=== PATIENT | female | born 1950 | race Caucasian/White ===

== ENCOUNTER 2017-08-15 11:15 | Outpatient (CLI) | payer MEDICARE, OTHER, SELFPAY | END 2017-08-15 12:00 | disposition home or self-care (01) | PROVIDERS: Visit Provider Allergy & Immunology | DX: J45.40 Moderate persistent asthma, uncomplicated (principal) | CPT/HCPCS: 96372; J2357 ==

== ENCOUNTER 2017-08-28 11:46 | Outpatient (CLI) | payer MEDICARE, OTHER, SELFPAY ==
[2017-08-28 12:09] VITALS: BMI 28.9
[2017-08-28 12:44] VITALS: BP 113/76; PULSE 98; RESP 20; TEMP 36.4; O2SAT 97
== END 2017-08-28 13:05 | disposition home or self-care (01) ==
LOC: INF 11:51
PROVIDERS: PCP Family Medicine; Visit Provider Allergy & Immunology
DX: J45.40 Moderate persistent asthma, uncomplicated (principal)
CPT/HCPCS: 96372; J2357

== ENCOUNTER 2017-09-12 12:08 | Outpatient (CLI) | payer MEDICARE, OTHER, SELFPAY ==
[2017-09-12 13:50] VITALS: BP 131/87; PULSE 96; RESP 18; O2SAT 98
== END 2017-09-12 14:05 | disposition home or self-care (01) ==
LOC: INF 12:08
PROVIDERS: Family Provider Internal Medicine; PCP Family Medicine; Visit Provider Allergy & Immunology
DX: J45.40 Moderate persistent asthma, uncomplicated (principal)
CPT/HCPCS: 96372; J2357

== ENCOUNTER 2017-09-26 13:25 | Outpatient (CLI) | payer MEDICARE, OTHER, SELFPAY ==
[2017-09-26 13:50] VITALS: BP 123/73; PULSE 88; RESP 18; O2SAT 98
== END 2017-09-26 14:05 | disposition home or self-care (01) ==
LOC: INF 13:48
PROVIDERS: Family Provider Internal Medicine; PCP Family Medicine; Visit Provider Allergy & Immunology
DX: J45.40 Moderate persistent asthma, uncomplicated (principal)
CPT/HCPCS: 96372; J2357

== ENCOUNTER 2017-10-11 11:45 | Outpatient (CLI) | payer MEDICARE, OTHER, SELFPAY ==
[2017-10-11 12:25] VITALS: BP 133/72; PULSE 81; RESP 18
== END 2017-10-11 12:25 | disposition home or self-care (01) ==
LOC: INF 16:05
PROVIDERS: Family Provider Internal Medicine; Visit Provider Allergy & Immunology
DX: J45.40 Moderate persistent asthma, uncomplicated (principal)
CPT/HCPCS: 96372; J2357

== ENCOUNTER 2017-10-25 11:50 | Outpatient (CLI) | payer MEDICARE, OTHER, SELFPAY ==
[2017-10-25 12:25] VITALS: BP 123/74; PULSE 87; RESP 18; O2SAT 93
== END 2017-10-25 12:40 | disposition home or self-care (01) ==
LOC: INF 12:15
PROVIDERS: Family Provider Internal Medicine; Visit Provider Allergy & Immunology
DX: J45.40 Moderate persistent asthma, uncomplicated (principal)
CPT/HCPCS: 96372; J2357

== ENCOUNTER 2017-11-08 13:05 | Outpatient (CLI) | payer MEDICARE, OTHER, SELFPAY ==
[2017-11-08 13:40] VITALS: BP 128/61; PULSE 78; RESP 18; TEMP 36.8; O2SAT 96
== END 2017-11-08 13:55 | disposition home or self-care (01) ==
LOC: INF 13:28
PROVIDERS: Family Provider Internal Medicine; Visit Provider Allergy & Immunology
DX: J45.40 Moderate persistent asthma, uncomplicated (principal)
CPT/HCPCS: 96372; J2357

== ENCOUNTER 2017-11-22 12:45 | Outpatient (CLI) | payer MEDICARE, OTHER, SELFPAY ==
[2017-11-22 13:20] VITALS: BP 141/82; PULSE 87; RESP 18
== END 2017-11-22 13:40 | disposition home or self-care (01) ==
LOC: INF 12:47
PROVIDERS: Family Provider Internal Medicine; Visit Provider Allergy & Immunology
DX: J45.40 Moderate persistent asthma, uncomplicated (principal)
CPT/HCPCS: 96372; J2357

== ENCOUNTER 2017-12-06 12:20 | Outpatient (CLI) | payer MEDICARE, OTHER, SELFPAY ==
[2017-12-06 13:35] VITALS: BP 132/52; PULSE 95; RESP 18; O2SAT 97
== END 2017-12-06 13:55 | disposition home or self-care (01) ==
LOC: INF 12:45
PROVIDERS: Family Provider Internal Medicine; Visit Provider Allergy & Immunology
DX: J45.40 Moderate persistent asthma, uncomplicated (principal)
CPT/HCPCS: 96372; J2357

== ENCOUNTER 2017-12-20 12:42 | Outpatient (CLI) | payer MEDICARE, OTHER, SELFPAY ==
[2017-12-20 13:20] VITALS: BP 122/65; PULSE 91; RESP 18; O2SAT 98
== END 2017-12-20 13:40 | disposition home or self-care (01) ==
LOC: INF 12:42
PROVIDERS: Family Provider Internal Medicine; Visit Provider Allergy & Immunology
DX: J45.40 Moderate persistent asthma, uncomplicated (principal)
CPT/HCPCS: 96372; J2357

== ENCOUNTER 2018-01-16 11:25 | Outpatient (CLI) | payer MEDICARE, OTHER, SELFPAY ==
[2018-01-16 11:55] VITALS: BP 128/59; PULSE 87; RESP 18; TEMP 36.6; O2SAT 100
== END 2018-01-16 12:15 | disposition home or self-care (01) ==
LOC: INF 11:44
PROVIDERS: Family Provider Internal Medicine; Visit Provider Allergy & Immunology
DX: J45.40 Moderate persistent asthma, uncomplicated (principal)
CPT/HCPCS: 96372; J2357

== ENCOUNTER 2018-01-31 12:35 | Outpatient (CLI) | payer MEDICARE, OTHER, SELFPAY ==
[2018-01-31 13:00] VITALS: BP 142/82; PULSE 68; RESP 20; TEMP 36.9; O2SAT 96
[2018-01-31 13:15] VITALS: BP 142/82; PULSE 68; RESP 20; TEMP 36.9; O2SAT 96
== END 2018-01-31 13:15 | disposition home or self-care (01) ==
LOC: INF 12:35
PROVIDERS: Family Provider Internal Medicine; Visit Provider Allergy & Immunology
DX: J45.40 Moderate persistent asthma, uncomplicated (principal)
CPT/HCPCS: 96372; J2357

== ENCOUNTER 2018-02-14 13:28 | Outpatient (CLI) | payer MEDICARE, OTHER, SELFPAY ==
[2018-02-14 13:58] VITALS: BP 139/73; PULSE 86; RESP 18; TEMP 36.6; O2SAT 95
[2018-02-14 14:03] VITALS: BP 139/73; PULSE 86; RESP 18; TEMP 36.6; O2SAT 95
== END 2018-02-14 14:05 | disposition home or self-care (01) ==
LOC: INF 13:28
PROVIDERS: Family Provider Internal Medicine; Visit Provider Allergy & Immunology
DX: J45.40 Moderate persistent asthma, uncomplicated (principal)
CPT/HCPCS: 96372; J2357

== ENCOUNTER 2018-02-28 12:49 | Outpatient (CLI) | payer MEDICARE, OTHER, SELFPAY ==
[2018-02-28 13:15] VITALS: BP 129/80; PULSE 86; RESP 18; TEMP 36.3; O2SAT 97
== END 2018-02-28 13:30 | disposition home or self-care (01) ==
LOC: INF 12:49
PROVIDERS: Family Provider Internal Medicine; Visit Provider Allergy & Immunology
DX: J45.40 Moderate persistent asthma, uncomplicated (principal)
CPT/HCPCS: 96372; J2357

== ENCOUNTER 2018-03-14 14:00 | Outpatient (CLI) | payer MEDICARE, OTHER, SELFPAY ==
[2018-03-14 14:25] VITALS: BP 144/83; PULSE 81; RESP 18; O2SAT 96
== END 2018-03-14 14:28 | disposition home or self-care (01) ==
LOC: INF 14:18
PROVIDERS: Family Provider Internal Medicine; Visit Provider Allergy & Immunology
DX: J45.40 Moderate persistent asthma, uncomplicated (principal)
CPT/HCPCS: 96372; J2357

== ENCOUNTER 2018-03-28 13:29 | Outpatient (CLI) | payer MEDICARE, OTHER, SELFPAY ==
[2018-03-28 14:00] VITALS: BP 127/73; PULSE 79; RESP 18; O2SAT 93
== END 2018-03-28 14:20 | disposition home or self-care (01) ==
LOC: INF 13:29
PROVIDERS: Family Provider Internal Medicine; Visit Provider Allergy & Immunology
DX: J45.40 Moderate persistent asthma, uncomplicated (principal)
CPT/HCPCS: 96372; J2357

== ENCOUNTER 2018-04-11 13:48 | Outpatient (CLI) | payer MEDICARE, OTHER, SELFPAY ==
[2018-04-11 14:30] VITALS: BP 122/70; PULSE 66; RESP 20; TEMP 36.9; O2SAT 96
== END 2018-04-11 14:45 | disposition home or self-care (01) ==
LOC: INF 13:49
PROVIDERS: Family Provider Internal Medicine; PCP Family Medicine; Visit Provider Allergy & Immunology
DX: J45.40 Moderate persistent asthma, uncomplicated (principal)
CPT/HCPCS: 96372; J2357

== ENCOUNTER 2018-04-25 11:20 | Outpatient (CLI) | payer MEDICARE, OTHER, SELFPAY ==
[2018-04-25 11:55] VITALS: BP 115/70; PULSE 86; RESP 18; O2SAT 95
== END 2018-04-25 12:15 | disposition home or self-care (01) ==
LOC: INF 11:41
PROVIDERS: PCP Family Medicine; Visit Provider Allergy & Immunology
DX: J45.40 Moderate persistent asthma, uncomplicated (principal)
CPT/HCPCS: 96372; J2357

== ENCOUNTER 2018-05-09 13:10 | Outpatient (CLI) | payer MEDICARE, OTHER, SELFPAY ==
[2018-05-09 13:35] VITALS: BP 138/84; PULSE 88; RESP 18; TEMP 36.1; O2SAT 95
== END 2018-05-09 13:45 | disposition home or self-care (01) ==
LOC: INF 13:12
PROVIDERS: Family Provider Internal Medicine; PCP Family Medicine; Visit Provider Allergy & Immunology
DX: J45.50 Severe persistent asthma, uncomplicated (principal)
CPT/HCPCS: 96372; J2357

== ENCOUNTER 2018-05-23 12:54 | Outpatient (CLI) | payer MEDICARE, OTHER, SELFPAY ==
[2018-05-23 13:37] VITALS: BP 146/75; PULSE 80; RESP 18; TEMP 36.7; O2SAT 97
== END 2018-05-23 13:05 | disposition home or self-care (01) ==
LOC: INF 12:54
PROVIDERS: Family Provider Internal Medicine; PCP Family Medicine; Visit Provider Allergy & Immunology
DX: J45.50 Severe persistent asthma, uncomplicated (principal)
CPT/HCPCS: 96372; J2357

== ENCOUNTER 2018-06-06 11:40 | Outpatient (CLI) | payer MEDICARE, OTHER, SELFPAY ==
[2018-06-06 12:25] VITALS: BP 141/79; PULSE 85; RESP 18; O2SAT 96
== END 2018-06-06 12:40 | disposition home or self-care (01) ==
LOC: INF 11:53
PROVIDERS: Visit Provider Allergy & Immunology
DX: J45.50 Severe persistent asthma, uncomplicated (principal)
CPT/HCPCS: 96372; J2357

== ENCOUNTER 2018-07-08 11:44 | Outpatient (CLI) | payer MEDICARE, OTHER, SELFPAY ==
[2018-07-08 11:47] VITALS: BP 143/88; PULSE 78; RESP 20; TEMP 36.7; O2SAT 96
== END 2018-07-08 11:59 | disposition home or self-care (01) ==
LOC: INF 11:44
PROVIDERS: Visit Provider Allergy & Immunology
DX: J45.50 Severe persistent asthma, uncomplicated (principal)
CPT/HCPCS: 96372; J2357

== ENCOUNTER 2018-07-24 13:25 | Outpatient (CLI) | payer MEDICARE, OTHER, SELFPAY ==
[2018-07-24 13:55] VITALS: BP 113/73; PULSE 87; RESP 18; TEMP 36.8
== END 2018-07-24 14:15 | disposition home or self-care (01) ==
LOC: INF 13:40
PROVIDERS: Visit Provider Allergy & Immunology
DX: J45.50 Severe persistent asthma, uncomplicated (principal)
CPT/HCPCS: 96372; J2357

== ENCOUNTER 2018-08-08 13:25 | Outpatient (CLI) | payer MEDICARE, OTHER, SELFPAY ==
[2018-08-08 13:55] VITALS: BP 133/73; PULSE 87; RESP 18; O2SAT 93
== END 2018-08-08 14:15 | disposition home or self-care (01) ==
LOC: INF 13:59
PROVIDERS: Visit Provider Allergy & Immunology
DX: J45.50 Severe persistent asthma, uncomplicated (principal)
CPT/HCPCS: 96372; J2357

== ENCOUNTER 2018-08-22 11:30 | Outpatient (CLI) | payer MEDICARE, OTHER, SELFPAY ==
[2018-08-22 12:02] VITALS: BP 130/76; PULSE 83; RESP 18; O2SAT 93
== END 2018-08-22 12:20 | disposition home or self-care (01) ==
LOC: INF 11:38
PROVIDERS: Visit Provider Allergy & Immunology
DX: J45.50 Severe persistent asthma, uncomplicated (principal)
CPT/HCPCS: 96372; J2357

== ENCOUNTER 2018-09-08 09:57 | Outpatient (CLI) | payer MEDICARE, OTHER, SELFPAY ==
[2018-09-08 10:25] VITALS: BP 123/73; PULSE 80; RESP 18; TEMP 36.4; O2SAT 96
== END 2018-09-08 10:45 | disposition home or self-care (01) ==
LOC: INF 09:57
PROVIDERS: Visit Provider Allergy & Immunology
DX: J45.50 Severe persistent asthma, uncomplicated (principal)
CPT/HCPCS: 96372; J2357

== ENCOUNTER 2018-09-22 11:46 | Outpatient (CLI) | payer MEDICARE, OTHER, SELFPAY ==
[2018-09-22 12:05] VITALS: BP 122/69; PULSE 81; RESP 18; TEMP 36.6; O2SAT 98
== END 2018-09-22 12:20 | disposition home or self-care (01) ==
LOC: INF 11:46
PROVIDERS: Visit Provider Allergy & Immunology
DX: J45.50 Severe persistent asthma, uncomplicated (principal)
CPT/HCPCS: 96372; J2357

== ENCOUNTER 2018-10-06 13:47 | Outpatient (CLI) | payer MEDICARE, OTHER, SELFPAY ==
[2018-10-06 14:07] VITALS: BP 120/64; PULSE 82; RESP 18; TEMP 36.6; O2SAT 98
--- NOTE | 2018-10-06 14:14 | PC.NURSE ---
1407 Xolair 375mg SQ given as ordered in divided doses L arm and R arm. Pt heather well with no problems noted
== END 2018-10-06 14:30 | disposition home or self-care (01) ==
LOC: INF 13:47
PROVIDERS: Visit Provider Allergy & Immunology
DX: J45.50 Severe persistent asthma, uncomplicated (principal)
CPT/HCPCS: 96372; J2357

== ENCOUNTER 2018-10-20 10:50 | Outpatient (CLI) | payer MEDICARE, OTHER, SELFPAY ==
[2018-10-20 11:10] VITALS: BP 121/66; PULSE 90; RESP 18; TEMP 36.8; O2SAT 96
== END 2018-10-20 11:18 | disposition home or self-care (01) ==
LOC: INF 11:00
PROVIDERS: Visit Provider Allergy & Immunology
DX: J45.50 Severe persistent asthma, uncomplicated (principal)
CPT/HCPCS: 96372; J2357

== ENCOUNTER 2018-11-03 13:43 | Outpatient (CLI) | payer MEDICARE, OTHER, SELFPAY ==
[2018-11-03 13:33] VITALS: BMI 28.9
[2018-11-03 13:50] VITALS: BP 134/73; PULSE 84; RESP 18; TEMP 36.4; O2SAT 97
== END 2018-11-03 13:55 | disposition home or self-care (01) ==
LOC: INF 13:43
PROVIDERS: Visit Provider Allergy & Immunology
DX: J45.50 Severe persistent asthma, uncomplicated (principal)
CPT/HCPCS: 96372; J2357

== ENCOUNTER 2018-11-17 13:18 | Outpatient (CLI) | payer MEDICARE, OTHER, SELFPAY ==
[2018-11-17 13:28] VITALS: BP 138/67; PULSE 80; RESP 18; TEMP 36.6; O2SAT 98
== END 2018-11-17 13:50 | disposition home or self-care (01) ==
LOC: INF 13:18
PROVIDERS: Visit Provider Allergy & Immunology
DX: J45.50 Severe persistent asthma, uncomplicated (principal)
CPT/HCPCS: 96372; J2357

== ENCOUNTER 2018-12-15 11:20 | Outpatient (CLI) | payer MEDICARE, OTHER, SELFPAY ==
[2018-12-15 11:47] VITALS: BP 139/87; PULSE 83; RESP 18; TEMP 36.4; O2SAT 98
== END 2018-12-15 12:00 | disposition home or self-care (01) ==
LOC: INF 11:45
PROVIDERS: Visit Provider Allergy & Immunology
DX: J45.50 Severe persistent asthma, uncomplicated (principal)
CPT/HCPCS: 96372; J2357

== ENCOUNTER 2018-12-31 13:27 | Outpatient (CLI) | payer MEDICARE, OTHER, SELFPAY ==
[2018-12-31 13:55] VITALS: BP 126/76; PULSE 88; RESP 18
== END 2018-12-31 13:55 | disposition home or self-care (01) ==
LOC: INF 13:27
PROVIDERS: Visit Provider Allergy & Immunology
DX: J45.50 Severe persistent asthma, uncomplicated (principal)
CPT/HCPCS: 96372; J2357

== ENCOUNTER 2019-01-14 12:10 | Outpatient (CLI) | payer MEDICARE, OTHER, SELFPAY ==
[2019-01-14 12:24] VITALS: BP 162/85; PULSE 91; RESP 18; O2SAT 97
== END 2019-01-14 12:24 | disposition home or self-care (01) ==
LOC: INF 12:11
PROVIDERS: Visit Provider Allergy & Immunology
DX: J45.50 Severe persistent asthma, uncomplicated (principal)
CPT/HCPCS: 96372; J2357

== ENCOUNTER 2019-02-16 12:16 | Outpatient (CLI) | payer MEDICARE, OTHER, SELFPAY ==
[2019-02-16 12:10] VITALS: BP 144/71; PULSE 74; RESP 18; TEMP 36.6; O2SAT 98
== END 2019-02-16 12:55 | disposition home or self-care (01) ==
LOC: INF 12:16
PROVIDERS: Visit Provider Allergy & Immunology
DX: J45.50 Severe persistent asthma, uncomplicated (principal)
CPT/HCPCS: 96372; J2357

== ENCOUNTER 2019-03-02 12:19 | Outpatient (CLI) | payer MEDICARE, OTHER, SELFPAY ==
[2019-03-02 12:20] VITALS: BP 135/74; PULSE 68; RESP 20; TEMP 36.9; O2SAT 95
== END 2019-03-02 12:35 | disposition home or self-care (01) ==
LOC: INF 12:19
PROVIDERS: Visit Provider Allergy & Immunology
DX: J45.50 Severe persistent asthma, uncomplicated (principal)
CPT/HCPCS: 96372; J2357

== ENCOUNTER 2019-03-18 12:10 | Outpatient (CLI) | payer MEDICARE, OTHER, SELFPAY ==
[2019-03-18 12:50] VITALS: BP 144/87; PULSE 91; RESP 18; O2SAT 94
== END 2019-03-18 13:05 | disposition home or self-care (01) ==
LOC: INF 12:14
PROVIDERS: PCP Family Medicine; Visit Provider Allergy & Immunology
DX: J45.50 Severe persistent asthma, uncomplicated (principal)
CPT/HCPCS: 96372; J2357

== ENCOUNTER 2019-03-31 10:16 | Outpatient (CLI) | payer MEDICARE, OTHER, SELFPAY ==
[2019-03-31 10:35] VITALS: BP 144/71; PULSE 96; RESP 18; O2SAT 96
== END 2019-03-31 10:40 | disposition home or self-care (01) ==
LOC: INF 10:16
PROVIDERS: Visit Provider Allergy & Immunology
DX: J45.50 Severe persistent asthma, uncomplicated (principal)
CPT/HCPCS: 96372; J2357

== ENCOUNTER 2019-04-14 11:00 | Outpatient (CLI) | payer MEDICARE, OTHER, SELFPAY ==
[2019-04-14 11:19] VITALS: BP 132/73; PULSE 76; RESP 18; TEMP 36.6; O2SAT 96
== END 2019-04-14 11:41 | disposition home or self-care (01) ==
LOC: INF 11:00
PROVIDERS: Visit Provider Allergy & Immunology
DX: J45.50 Severe persistent asthma, uncomplicated (principal)
CPT/HCPCS: 96372; J2357

== ENCOUNTER 2019-04-28 10:43 | Outpatient (CLI) | payer MEDICARE, OTHER, SELFPAY ==
[2019-04-28 11:00] VITALS: BP 154/87; PULSE 84; RESP 20; TEMP 36.9; O2SAT 95
== END 2019-04-28 11:30 | disposition home or self-care (01) ==
LOC: INF 10:43
PROVIDERS: Visit Provider Allergy & Immunology
DX: J45.50 Severe persistent asthma, uncomplicated (principal)
CPT/HCPCS: 96372; J2357

== ENCOUNTER 2019-05-12 12:45 | Outpatient (CLI) | payer MEDICARE, OTHER, SELFPAY ==
[2019-05-12 13:10] VITALS: BP 149/83; PULSE 83; RESP 18; O2SAT 100
== END 2019-05-12 13:10 | disposition home or self-care (01) ==
LOC: INF 12:45
PROVIDERS: Visit Provider Allergy & Immunology
DX: J45.50 Severe persistent asthma, uncomplicated (principal)
CPT/HCPCS: 96372; J2357

== ENCOUNTER 2019-05-26 11:48 | Outpatient (CLI) | payer MEDICARE, OTHER, SELFPAY ==
[2019-05-26 12:02] VITALS: BP 146/82; PULSE 89; RESP 18; TEMP 36.4; O2SAT 97
== END 2019-05-26 12:22 | disposition home or self-care (01) ==
LOC: INF 11:48
PROVIDERS: Visit Provider Allergy & Immunology
DX: J45.50 Severe persistent asthma, uncomplicated (principal)
CPT/HCPCS: 96372; J2357

== ENCOUNTER 2019-06-10 14:25 | Outpatient (CLI) | payer MEDICARE, OTHER, SELFPAY ==
[2019-06-10 14:50] VITALS: BP 143/83; PULSE 92; RESP 18; O2SAT 95
== END 2019-06-10 15:05 | disposition home or self-care (01) ==
LOC: INF 14:33
PROVIDERS: Visit Provider Allergy & Immunology
DX: J45.50 Severe persistent asthma, uncomplicated (principal)
CPT/HCPCS: 96372; J2357

== ENCOUNTER 2019-06-24 09:05 | Outpatient (CLI) | payer MEDICARE, OTHER, SELFPAY ==
[2019-06-24 09:29] VITALS: BP 144/75; PULSE 83; RESP 18; O2SAT 96
== END 2019-06-24 09:29 | disposition home or self-care (01) ==
LOC: INF 09:05
PROVIDERS: Visit Provider Allergy & Immunology
DX: J45.50 Severe persistent asthma, uncomplicated (principal)
CPT/HCPCS: 96372; J2357

== ENCOUNTER 2019-07-13 09:49 | Outpatient (CLI) | payer MEDICARE, OTHER, SELFPAY ==
[2019-07-13 10:06] VITALS: BP 129/64; PULSE 81; RESP 18; TEMP 36.6; O2SAT 97
== END 2019-07-13 10:30 | disposition home or self-care (01) ==
LOC: INF 09:49
PROVIDERS: PCP Family Medicine; Visit Provider Allergy & Immunology
DX: J45.50 Severe persistent asthma, uncomplicated (principal)
CPT/HCPCS: 96372; J2357

== ENCOUNTER 2019-07-28 11:29 | Outpatient (CLI) | payer MEDICARE, OTHER, SELFPAY ==
[2019-07-28 11:38] VITALS: BP 115/76; PULSE 78; RESP 18; TEMP 36.9; O2SAT 99
== END 2019-07-28 12:00 | disposition home or self-care (01) ==
LOC: INF 11:29
PROVIDERS: Visit Provider Allergy & Immunology
DX: J45.50 Severe persistent asthma, uncomplicated (principal)
CPT/HCPCS: 96372; J2357

== ENCOUNTER 2019-08-10 11:37 | Outpatient (CLI) | payer MEDICARE, OTHER, SELFPAY ==
[2019-08-10 12:05] VITALS: BP 146/77; PULSE 85; RESP 18
== END 2019-08-10 12:05 | disposition home or self-care (01) ==
LOC: INF 11:37
PROVIDERS: Visit Provider Allergy & Immunology
DX: J45.50 Severe persistent asthma, uncomplicated (principal)
CPT/HCPCS: 96372; J2357

== ENCOUNTER 2019-09-01 11:43 | Outpatient (CLI) | payer MEDICARE, OTHER, SELFPAY ==
[2019-09-01 11:50] VITALS: BP 138/82; PULSE 75; RESP 18; TEMP 36.6; O2SAT 96
== END 2019-09-01 12:26 | disposition home or self-care (01) ==
LOC: INF 11:43
PROVIDERS: PCP Family Medicine; Visit Provider Allergy & Immunology
DX: J45.50 Severe persistent asthma, uncomplicated (principal)
CPT/HCPCS: 96372; J2357

== ENCOUNTER 2019-09-15 10:12 | Outpatient (CLI) | payer MEDICARE, OTHER, SELFPAY ==
[2019-09-15 10:29] VITALS: BP 152/79; PULSE 75; RESP 18; TEMP 36.1; O2SAT 97
== END 2019-09-15 10:45 | disposition home or self-care (01) ==
LOC: INF 10:12
PROVIDERS: Visit Provider Allergy & Immunology
DX: J45.50 Severe persistent asthma, uncomplicated (principal)
CPT/HCPCS: 96372; J2357

== ENCOUNTER 2019-09-28 11:14 | Outpatient (CLI) | payer MEDICARE, OTHER, SELFPAY ==
[2019-09-28 11:34] VITALS: BP 135/71; PULSE 80; RESP 18; TEMP 36.7; O2SAT 96
== END 2019-09-28 12:00 | disposition home or self-care (01) ==
LOC: INF 11:14
PROVIDERS: PCP Family Medicine; Visit Provider Allergy & Immunology
DX: J45.50 Severe persistent asthma, uncomplicated (principal)
CPT/HCPCS: 96372; J2357

== ENCOUNTER 2019-10-28 09:55 | Outpatient (CLI) | payer MEDICARE, OTHER, SELFPAY ==
[2019-10-28 10:23] VITALS: BP 126/84; PULSE 79; RESP 18; TEMP 36.4; O2SAT 97
== END 2019-10-28 10:40 | disposition home or self-care (01) ==
LOC: INF 09:59
PROVIDERS: PCP Family Medicine; Visit Provider Allergy & Immunology
DX: J45.50 Severe persistent asthma, uncomplicated (principal)
CPT/HCPCS: 96372; J2357

== ENCOUNTER 2019-11-18 14:07 | Outpatient (CLI) | payer MEDICARE, OTHER, SELFPAY ==
[2019-11-18 14:30] VITALS: BP 154/68; PULSE 84; RESP 18; TEMP 37.1; O2SAT 98
== END 2019-11-18 14:42 | disposition home or self-care (01) ==
LOC: INF 14:07
PROVIDERS: PCP Family Medicine; Visit Provider Allergy & Immunology
DX: J45.50 Severe persistent asthma, uncomplicated (principal)
CPT/HCPCS: 96372; J2357

== ENCOUNTER 2019-12-02 10:16 | Outpatient (CLI) | payer MEDICARE, OTHER, SELFPAY ==
[2019-12-02 10:51] VITALS: BP 154/67; PULSE 91; RESP 18; TEMP 36.5; O2SAT 97
== END 2019-12-02 11:10 | disposition home or self-care (01) ==
LOC: INF 10:17
PROVIDERS: Visit Provider Allergy & Immunology
DX: J45.50 Severe persistent asthma, uncomplicated (principal)
CPT/HCPCS: 96372; J2357

== ENCOUNTER 2019-12-16 10:43 | Outpatient (CLI) | payer MEDICARE, OTHER, SELFPAY ==
[2019-12-16 11:05] VITALS: BP 133/75; PULSE 85; RESP 18; TEMP 36.9; O2SAT 98
== END 2019-12-16 11:20 | disposition home or self-care (01) ==
LOC: INF 10:43
PROVIDERS: Visit Provider Allergy & Immunology
DX: J45.50 Severe persistent asthma, uncomplicated (principal)
CPT/HCPCS: 96372; J2357

== ENCOUNTER 2019-12-28 10:48 | Outpatient (CLI) | payer MEDICARE, OTHER, SELFPAY ==
[2019-12-28 11:08] VITALS: BP 146/76; PULSE 91; RESP 18; TEMP 36.8; O2SAT 97
== END 2019-12-28 11:33 | disposition home or self-care (01) ==
LOC: INF 10:48
PROVIDERS: Visit Provider Allergy & Immunology
DX: J45.50 Severe persistent asthma, uncomplicated (principal)
CPT/HCPCS: 96372; J2357

== ENCOUNTER 2020-01-13 10:57 | Outpatient (CLI) | payer MEDICARE, OTHER, SELFPAY ==
[2020-01-13 11:25] VITALS: BP 150/72; PULSE 85; RESP 18; TEMP 36.6; O2SAT 100
== END 2020-01-13 11:40 | disposition home or self-care (01) ==
LOC: INF 10:57
PROVIDERS: Visit Provider Allergy & Immunology
DX: J45.50 Severe persistent asthma, uncomplicated (principal)
CPT/HCPCS: 96372; J2357

== ENCOUNTER 2020-02-03 10:50 | Outpatient (CLI) | payer MEDICARE, OTHER, SELFPAY ==
[2020-02-03 11:15] VITALS: BP 129/70; PULSE 89; RESP 18; TEMP 36.8; O2SAT 98
== END 2020-02-03 11:30 | disposition home or self-care (01) ==
LOC: INF 10:54
PROVIDERS: Visit Provider Allergy & Immunology
DX: J45.50 Severe persistent asthma, uncomplicated (principal)
CPT/HCPCS: 96372; J2357

== ENCOUNTER 2020-02-18 13:10 | Outpatient (CLI) | payer MEDICARE, OTHER, SELFPAY ==
[2020-02-18 13:23] VITALS: BP 126/69; PULSE 104; RESP 20; TEMP 36.8; O2SAT 98
== END 2020-02-18 13:50 | disposition home or self-care (01) ==
LOC: INF 13:10
PROVIDERS: Visit Provider Allergy & Immunology
DX: J45.50 Severe persistent asthma, uncomplicated (principal)
CPT/HCPCS: 96372; J2357

== ENCOUNTER 2020-03-01 09:10 | Outpatient (CLI) | payer MEDICARE, OTHER, SELFPAY ==
[2020-03-01 09:33] VITALS: BP 127/78; PULSE 90; RESP 18; TEMP 36.4; O2SAT 99
== END 2020-03-01 09:33 | disposition home or self-care (01) ==
LOC: INF 09:13
PROVIDERS: Visit Provider Allergy & Immunology
DX: J45.50 Severe persistent asthma, uncomplicated (principal)
CPT/HCPCS: 96372; J2357

== ENCOUNTER 2020-03-14 11:04 | Outpatient (CLI) | payer MEDICARE, OTHER, SELFPAY ==
[2020-03-14 11:15] VITALS: BP 125/72; PULSE 83; RESP 18; TEMP 36.9; O2SAT 96
== END 2020-03-14 11:30 | disposition home or self-care (01) ==
LOC: INF 11:04
PROVIDERS: Visit Provider Allergy & Immunology
DX: J45.50 Severe persistent asthma, uncomplicated (principal)
CPT/HCPCS: 96372; J2357

== ENCOUNTER → 2020-03-31 12:26 | Outpatient (CLI) | payer MEDICARE, OTHER, SELFPAY | PROVIDERS: Visit Provider Internal Medicine | DX: Z03.818 Encounter for observation for suspected exposure to other biological agents ruled out (principal) | CPT/HCPCS: 36415; U0003 ==

== ENCOUNTER 2020-03-31 12:44 | Outpatient (CLI) | payer MEDICARE, OTHER, SELFPAY ==
[2020-03-31 12:57] VITALS: BP 137/71; PULSE 87; RESP 18; TEMP 36.7; O2SAT 96
== END 2020-03-31 13:12 | disposition home or self-care (01) ==
LOC: INF 12:44
PROVIDERS: Visit Provider Allergy & Immunology
DX: J45.50 Severe persistent asthma, uncomplicated (principal); Z03.818 Encounter for observation for suspected exposure to other biological agents ruled out
CPT/HCPCS: 36415; 96372; J2357; U0003

== ENCOUNTER 2020-04-12 12:50 | Outpatient (CLI) | payer MEDICARE, OTHER, SELFPAY ==
[2020-04-12 13:09] VITALS: BP 126/71; PULSE 88; RESP 20; TEMP 36.1; O2SAT 100
== END 2020-04-12 13:25 | disposition home or self-care (01) ==
LOC: INF 12:50
PROVIDERS: PCP Family Medicine; Visit Provider Allergy & Immunology
DX: J45.50 Severe persistent asthma, uncomplicated (principal)
CPT/HCPCS: 96372; J2357

== ENCOUNTER 2020-04-27 14:20 | Outpatient (CLI) | payer MEDICARE, OTHER, SELFPAY ==
[2020-04-27 14:40] VITALS: BP 131/79; PULSE 91; RESP 18; TEMP 36.9; O2SAT 95
== END 2020-04-27 14:55 | disposition home or self-care (01) ==
LOC: INF 14:27
PROVIDERS: Visit Provider Allergy & Immunology
DX: J45.50 Severe persistent asthma, uncomplicated (principal)
CPT/HCPCS: 96372; J2357

== ENCOUNTER 2020-05-11 14:01 | Outpatient (CLI) | payer MEDICARE, OTHER, SELFPAY ==
[2020-05-11 14:25] VITALS: BP 138/60; PULSE 80; RESP 20; TEMP 36.7; O2SAT 98
== END 2020-05-11 14:45 | disposition home or self-care (01) ==
LOC: INF 14:01
PROVIDERS: Visit Provider Allergy & Immunology
DX: J45.50 Severe persistent asthma, uncomplicated (principal)
CPT/HCPCS: 96372; J2357

== ENCOUNTER 2020-05-25 11:59 | Outpatient (CLI) | payer MEDICARE, OTHER, SELFPAY ==
[2020-05-25 12:20] VITALS: BP 129/78; PULSE 91; RESP 18; TEMP 36.6; O2SAT 97
== END 2020-05-25 12:42 | disposition home or self-care (01) ==
LOC: INF 11:59
PROVIDERS: Visit Provider Allergy & Immunology
DX: J45.50 Severe persistent asthma, uncomplicated (principal)
CPT/HCPCS: 96372; J2357

== ENCOUNTER 2020-06-08 11:49 | Outpatient (CLI) | payer MEDICARE, OTHER, SELFPAY ==
[2020-06-08 12:20] VITALS: BP 112/56; PULSE 89; RESP 18; TEMP 36.8; O2SAT 96
== END 2020-06-08 12:33 | disposition home or self-care (01) ==
LOC: INF 11:49
PROVIDERS: PCP Family Medicine; Visit Provider Allergy & Immunology
DX: J45.50 Severe persistent asthma, uncomplicated (principal)
CPT/HCPCS: 96372; J2357

== ENCOUNTER 2020-06-22 13:35 | Outpatient (CLI) | payer MEDICARE, OTHER, SELFPAY ==
[2020-06-22 14:13] VITALS: BP 112/63; PULSE 90; RESP 18; TEMP 36.7; O2SAT 97
== END 2020-06-22 14:25 | disposition home or self-care (01) ==
LOC: INF 13:39
PROVIDERS: Visit Provider Allergy & Immunology
DX: J45.50 Severe persistent asthma, uncomplicated (principal)
CPT/HCPCS: 96372; J2357

== ENCOUNTER 2020-07-18 11:40 | Outpatient (CLI) | payer MEDICARE, OTHER, SELFPAY ==
[2020-07-18 12:08] VITALS: BP 135/72; PULSE 99; RESP 18; TEMP 36.8
== END 2020-07-18 12:08 | disposition home or self-care (01) ==
LOC: INF 11:40
PROVIDERS: PCP Family Medicine; Visit Provider Allergy & Immunology
DX: J45.50 Severe persistent asthma, uncomplicated (principal)
CPT/HCPCS: 96372; J2357

== ENCOUNTER 2020-08-02 11:10 | Outpatient (CLI) | payer MEDICARE, OTHER, SELFPAY ==
[2020-08-02 11:35] VITALS: BP 138/83; PULSE 81; RESP 18; TEMP 36.3
== END 2020-08-02 11:35 | disposition home or self-care (01) ==
LOC: INF 11:10
PROVIDERS: Visit Provider Allergy & Immunology
DX: J45.50 Severe persistent asthma, uncomplicated (principal)
CPT/HCPCS: 96372; J2357

== ENCOUNTER 2020-08-17 10:28 | Outpatient (CLI) | payer MEDICARE, OTHER, SELFPAY ==
[2020-08-17 11:02] VITALS: BP 158/57; PULSE 85; RESP 18; TEMP 36.3; O2SAT 97
== END 2020-08-17 11:02 | disposition home or self-care (01) ==
LOC: INF 10:28
PROVIDERS: Visit Provider Allergy & Immunology
DX: J45.50 Severe persistent asthma, uncomplicated (principal)
CPT/HCPCS: 96372; J2357

== ENCOUNTER 2020-09-19 12:49 | Outpatient (CLI) | payer MEDICARE, OTHER, SELFPAY ==
[2020-09-19 13:12] VITALS: BP 139/57; PULSE 98; RESP 18; TEMP 36.2; O2SAT 97
== END 2020-09-19 13:30 | disposition home or self-care (01) ==
LOC: INF 12:49
PROVIDERS: Visit Provider Allergy & Immunology
DX: J45.50 Severe persistent asthma, uncomplicated (principal)
CPT/HCPCS: 96372; J2357

== ENCOUNTER 2020-10-14 13:58 | Outpatient (CLI) | payer MEDICARE, OTHER, SELFPAY ==
[2020-10-14 14:22] VITALS: BP 133/65; PULSE 83; RESP 18; TEMP 36.2; O2SAT 98
== END 2020-10-14 14:39 | disposition home or self-care (01) ==
LOC: INF 13:58
PROVIDERS: PCP Family Medicine; Visit Provider Allergy & Immunology
DX: J45.50 Severe persistent asthma, uncomplicated (principal)
CPT/HCPCS: 96372; J2357

== ENCOUNTER 2020-10-25 12:44 | Outpatient (CLI) | payer MEDICARE, OTHER, SELFPAY ==
[2020-10-25 13:01] VITALS: BP 119/69; PULSE 86; RESP 18; TEMP 36.2; O2SAT 98
== END 2020-10-25 13:15 | disposition home or self-care (01) ==
LOC: INF 12:44
PROVIDERS: Visit Provider Allergy & Immunology
DX: J45.50 Severe persistent asthma, uncomplicated (principal)
CPT/HCPCS: 96372; J2357

== ENCOUNTER 2020-11-08 11:19 | Outpatient (CLI) | payer MEDICARE, OTHER, SELFPAY ==
[2020-11-08 11:00] VITALS: BP 137/71; PULSE 86; RESP 18; TEMP 36.2; O2SAT 96
== END 2020-11-08 11:20 | disposition home or self-care (01) ==
LOC: INF 11:19
PROVIDERS: Visit Provider Allergy & Immunology
DX: J45.50 Severe persistent asthma, uncomplicated (principal)
CPT/HCPCS: 96372; J2357

== ENCOUNTER 2020-11-28 10:30 | Outpatient (CLI) | payer MEDICARE, OTHER, SELFPAY ==
[2020-11-28 11:00] VITALS: BP 125/67; PULSE 93; RESP 18; TEMP 36.4; O2SAT 96
== END 2020-11-28 11:30 | disposition home or self-care (01) ==
LOC: INF 10:31
PROVIDERS: Visit Provider Allergy & Immunology
DX: J45.50 Severe persistent asthma, uncomplicated (principal)
CPT/HCPCS: 96372; J2357

== ENCOUNTER 2020-12-13 09:54 | Outpatient (CLI) | payer MEDICARE, OTHER, SELFPAY ==
[2020-12-13 10:20] VITALS: BP 139/79; PULSE 82; RESP 17; TEMP 36.2; O2SAT 97
[2020-12-13 10:25] VITALS: BP 139/79; PULSE 82; RESP 17; TEMP 36.2; O2SAT 97
== END 2020-12-13 10:29 | disposition home or self-care (01) ==
LOC: INF 09:54
PROVIDERS: Visit Provider Allergy & Immunology
DX: J45.50 Severe persistent asthma, uncomplicated (principal)
CPT/HCPCS: 96372; J2357

== ENCOUNTER 2020-12-27 10:07 | Outpatient (CLI) | payer MEDICARE, OTHER, SELFPAY ==
[2020-12-27 10:36] VITALS: BP 124/74; PULSE 82; RESP 17; TEMP 36.8; O2SAT 95
== END 2020-12-27 10:37 | disposition home or self-care (01) ==
LOC: INF 10:36
PROVIDERS: Visit Provider Allergy & Immunology
DX: J45.50 Severe persistent asthma, uncomplicated (principal)
CPT/HCPCS: 96372; J2357

== ENCOUNTER 2021-01-10 11:25 | Outpatient (CLI) | payer MEDICARE, OTHER, SELFPAY ==
[2021-01-10 11:47] VITALS: BP 130/84; PULSE 82; RESP 17; TEMP 36.7; O2SAT 96
[2021-01-10 11:55] VITALS: BP 130/84; PULSE 82; RESP 17; TEMP 36.7; O2SAT 96
== END 2021-01-10 11:57 | disposition home or self-care (01) ==
LOC: INF 12:32
PROVIDERS: Visit Provider Student in an Organized Health Care Education/Training Program
DX: J45.50 Severe persistent asthma, uncomplicated (principal)
CPT/HCPCS: 96372; J2357

== ENCOUNTER 2021-01-27 09:05 | Outpatient (CLI) | payer MEDICARE, OTHER, SELFPAY ==
[2021-01-27 09:51] VITALS: BP 135/70; PULSE 86; RESP 17; TEMP 36.6; O2SAT 97
== END 2021-01-27 09:54 | disposition home or self-care (01) ==
LOC: INF 09:12
PROVIDERS: Visit Provider Student in an Organized Health Care Education/Training Program
DX: J45.50 Severe persistent asthma, uncomplicated (principal)
CPT/HCPCS: 96372; J2357

== ENCOUNTER 2021-02-14 08:45 | Outpatient (CLI) | payer MEDICARE, OTHER, SELFPAY ==
[2021-02-14 09:20] VITALS: BP 129/73; PULSE 84; RESP 18; TEMP 36.4; O2SAT 98
== END 2021-02-14 09:42 | disposition home or self-care (01) ==
LOC: INF 08:55
DX: J45.50 Severe persistent asthma, uncomplicated (principal)
CPT/HCPCS: 96372; J2357

== ENCOUNTER 2021-03-06 09:11 | Outpatient (CLI) | payer MEDICARE, OTHER, SELFPAY ==
[2021-03-06 09:40] VITALS: BP 134/72; PULSE 79; RESP 18; TEMP 36.8; O2SAT 96
== END 2021-03-06 09:59 | disposition home or self-care (01) ==
LOC: INF 09:11
PROVIDERS: Visit Provider Student in an Organized Health Care Education/Training Program
DX: J45.50 Severe persistent asthma, uncomplicated (principal)
CPT/HCPCS: 96372; J2357

== ENCOUNTER 2021-03-20 09:24 | Outpatient (CLI) | payer MEDICARE, OTHER, SELFPAY ==
[2021-03-20 09:53] VITALS: BP 131/77; PULSE 89; RESP 18; TEMP 36.5; O2SAT 96
== END 2021-03-20 10:15 | disposition home or self-care (01) ==
LOC: INF 09:24
PROVIDERS: Visit Provider Allergy & Immunology
DX: J45.50 Severe persistent asthma, uncomplicated (principal)
CPT/HCPCS: 96372; J2357

== ENCOUNTER 2021-04-05 08:45 | Outpatient (CLI) | payer MEDICARE, OTHER, SELFPAY ==
[2021-04-05 09:20] VITALS: BP 144/76; PULSE 83; RESP 17; TEMP 36.6; O2SAT 96
== END 2021-04-05 09:22 | disposition home or self-care (01) ==
LOC: INF 08:54
PROVIDERS: Visit Provider Student in an Organized Health Care Education/Training Program
DX: J45.50 Severe persistent asthma, uncomplicated (principal)
CPT/HCPCS: 96372; J2357

== ENCOUNTER 2021-04-17 09:55 | Outpatient (CLI) | payer MEDICARE, OTHER, SELFPAY ==
[2021-04-17 10:40] VITALS: BP 125/71; PULSE 92; RESP 20; TEMP 36.3; O2SAT 96
== END 2021-04-17 11:00 | disposition home or self-care (01) ==
LOC: INF 09:59
PROVIDERS: Visit Provider Student in an Organized Health Care Education/Training Program
DX: J45.50 Severe persistent asthma, uncomplicated (principal)
CPT/HCPCS: 96372; J2357

== ENCOUNTER 2021-05-01 13:23 | Outpatient (CLI) | payer MEDICARE, OTHER, SELFPAY ==
[2021-05-01 14:00] VITALS: BP 135/65; PULSE 89; RESP 18; TEMP 36.7; O2SAT 98
== END 2021-05-01 14:17 | disposition home or self-care (01) ==
LOC: INF 13:25
PROVIDERS: PCP Family Medicine; Visit Provider Student in an Organized Health Care Education/Training Program
DX: J45.50 Severe persistent asthma, uncomplicated (principal)
CPT/HCPCS: 96372; J2357

== ENCOUNTER 2021-05-15 11:44 | Outpatient (CLI) | payer MEDICARE, OTHER, SELFPAY ==
[2021-05-15 12:15] VITALS: BP 138/65; PULSE 91; RESP 18; TEMP 36.6; O2SAT 99
== END 2021-05-15 12:32 | disposition home or self-care (01) ==
LOC: INF 11:46
PROVIDERS: PCP Internal Medicine Adolescent Medicine; Visit Provider Student in an Organized Health Care Education/Training Program
DX: J45.50 Severe persistent asthma, uncomplicated (principal)
CPT/HCPCS: 96372; J2357

== ENCOUNTER 2021-06-05 12:20 | Outpatient (CLI) | payer MEDICARE, OTHER, SELFPAY ==
[2021-06-05 12:55] VITALS: BP 124/67; PULSE 90; RESP 18; O2SAT 99
== END 2021-06-05 12:55 | disposition home or self-care (01) ==
LOC: INF 12:21
PROVIDERS: PCP Family Medicine; Visit Provider Student in an Organized Health Care Education/Training Program
DX: J45.50 Severe persistent asthma, uncomplicated (principal)
CPT/HCPCS: 96372; J2357

== ENCOUNTER 2021-06-19 11:04 | Outpatient (CLI) | payer MEDICARE, OTHER, SELFPAY ==
[2021-06-19 11:30] VITALS: BP 149/78; PULSE 80; RESP 18; TEMP 36.4; O2SAT 96
[2021-06-19 11:45] VITALS: BP 132/76; PULSE 75; RESP 16; TEMP 36.4; O2SAT 96
== END 2021-06-19 11:45 | disposition home or self-care (01) ==
LOC: INF 11:06
PROVIDERS: PCP Family Medicine; Visit Provider Student in an Organized Health Care Education/Training Program
DX: J45.50 Severe persistent asthma, uncomplicated (principal)
CPT/HCPCS: 96372; J2357

== ENCOUNTER 2021-07-03 10:47 | Outpatient (CLI) | payer MEDICARE, OTHER, SELFPAY ==
[2021-07-03 11:25] VITALS: BP 130/70; PULSE 80; RESP 20; TEMP 36.6; O2SAT 95
== END 2021-07-03 11:49 | disposition home or self-care (01) ==
LOC: INF 10:49
PROVIDERS: PCP Family Medicine; Visit Provider Student in an Organized Health Care Education/Training Program
DX: J45.50 Severe persistent asthma, uncomplicated (principal)
CPT/HCPCS: 96372; J2357

== ENCOUNTER 2021-07-18 08:44 | Outpatient (CLI) | payer MEDICARE, OTHER, SELFPAY ==
[2021-07-18 09:20] VITALS: BP 133/94; PULSE 94; RESP 18; TEMP 36.4; O2SAT 95
== END 2021-07-18 09:20 | disposition home or self-care (01) ==
LOC: INF 08:45
PROVIDERS: PCP Family Medicine; Visit Provider Student in an Organized Health Care Education/Training Program
DX: J45.50 Severe persistent asthma, uncomplicated (principal)
CPT/HCPCS: 96372; J2357

== ENCOUNTER 2021-08-01 09:05 | Outpatient (CLI) | payer MEDICARE, OTHER, SELFPAY ==
[2021-08-01 10:04] VITALS: BP 135/78; PULSE 91; RESP 18; TEMP 36.7; O2SAT 98
== END 2021-08-01 10:25 | disposition home or self-care (01) ==
LOC: INF 09:06
PROVIDERS: PCP Family Medicine; Visit Provider Student in an Organized Health Care Education/Training Program
DX: J45.50 Severe persistent asthma, uncomplicated (principal)
CPT/HCPCS: 96372; J2357

== ENCOUNTER 2021-08-15 08:56 | Outpatient (CLI) | payer MEDICARE, OTHER, SELFPAY ==
[2021-08-15 09:31] VITALS: BP 148/71; PULSE 85; RESP 18; TEMP 36.4; O2SAT 97
== END 2021-08-15 09:31 | disposition home or self-care (01) ==
LOC: INF 08:56
PROVIDERS: PCP Family Medicine; Visit Provider Student in an Organized Health Care Education/Training Program
DX: J45.50 Severe persistent asthma, uncomplicated (principal)
CPT/HCPCS: 96372; J2357

== ENCOUNTER 2021-08-29 08:50 | Outpatient (CLI) | payer MEDICARE, OTHER, SELFPAY ==
[2021-08-29 09:15] VITALS: BP 147/81; PULSE 87; RESP 18; O2SAT 96
== END 2021-08-29 09:15 | disposition home or self-care (01) ==
LOC: INF 08:51
PROVIDERS: PCP Family Medicine; Visit Provider Student in an Organized Health Care Education/Training Program
DX: J45.50 Severe persistent asthma, uncomplicated (principal)
CPT/HCPCS: 96372; J2357

== ENCOUNTER 2021-09-12 09:00 | Outpatient (CLI) | payer MEDICARE, OTHER, SELFPAY ==
[2021-09-12 09:25] VITALS: BP 150/72; PULSE 90; RESP 18; TEMP 36.3; O2SAT 96
== END 2021-09-12 09:25 | disposition home or self-care (01) ==
LOC: INF 09:02
PROVIDERS: PCP Family Medicine; Visit Provider Student in an Organized Health Care Education/Training Program
DX: J45.50 Severe persistent asthma, uncomplicated (principal)
CPT/HCPCS: 96372; J2357

== ENCOUNTER 2021-09-26 09:20 | Outpatient (CLI) | payer MEDICARE, OTHER, SELFPAY ==
[2021-09-26 09:29] VITALS: BP 146/67; PULSE 100; RESP 20; TEMP 36.7; O2SAT 98
== END 2021-09-26 09:43 | disposition home or self-care (01) ==
LOC: INF 09:21
PROVIDERS: PCP Family Medicine; Visit Provider Student in an Organized Health Care Education/Training Program
DX: J45.50 Severe persistent asthma, uncomplicated (principal)
CPT/HCPCS: 96372; J2357

== ENCOUNTER 2021-10-10 09:11 | Outpatient (CLI) | payer MEDICARE, OTHER, SELFPAY ==
[2021-10-10 09:24] VITALS: BP 156/79; PULSE 86; RESP 18; TEMP 36.2; O2SAT 96
== END 2021-10-10 09:45 | disposition home or self-care (01) ==
LOC: INF 09:12
PROVIDERS: PCP Family Medicine; Visit Provider Student in an Organized Health Care Education/Training Program
DX: J45.50 Severe persistent asthma, uncomplicated (principal)
CPT/HCPCS: 96372; J2357

== ENCOUNTER 2021-10-23 08:26 | Outpatient (CLI) | payer MEDICARE, OTHER, SELFPAY ==
[2021-10-23 09:09] VITALS: BP 123/72; PULSE 92; RESP 20; TEMP 36.8; O2SAT 97
== END 2021-10-23 09:25 | disposition home or self-care (01) ==
LOC: INF 08:27
PROVIDERS: PCP Family Medicine; Visit Provider Student in an Organized Health Care Education/Training Program
DX: J45.50 Severe persistent asthma, uncomplicated (principal)
CPT/HCPCS: 96372; J2357

== ENCOUNTER 2021-11-07 09:51 | Outpatient (CLI) | payer MEDICARE, OTHER, SELFPAY ==
[2021-11-07 10:13] VITALS: BP 112/58; PULSE 86; RESP 18; TEMP 36.3
== END 2021-11-07 10:13 | disposition home or self-care (01) ==
LOC: INF 09:52
PROVIDERS: PCP Family Medicine; Visit Provider Student in an Organized Health Care Education/Training Program
DX: J45.50 Severe persistent asthma, uncomplicated (principal)
CPT/HCPCS: 96372; J2357

== ENCOUNTER 2021-11-21 09:22 | Outpatient (CLI) | payer MEDICARE, OTHER, SELFPAY ==
[2021-11-21 09:36] VITALS: BP 155/71; PULSE 86; RESP 18; TEMP 36.5; O2SAT 98
== END 2021-11-21 10:06 | disposition home or self-care (01) ==
LOC: INF 09:24
PROVIDERS: PCP Family Medicine; Visit Provider Student in an Organized Health Care Education/Training Program
DX: J45.50 Severe persistent asthma, uncomplicated (principal)
CPT/HCPCS: 96372; J2357

== ENCOUNTER 2021-12-04 11:55 | Outpatient (CLI) | payer MEDICARE, OTHER, SELFPAY ==
[2021-12-04 12:11] VITALS: BP 143/78; PULSE 83; RESP 16; O2SAT 98
== END 2021-12-04 12:11 | disposition home or self-care (01) ==
LOC: INF 11:55
PROVIDERS: PCP Family Medicine; Visit Provider Student in an Organized Health Care Education/Training Program
DX: J45.50 Severe persistent asthma, uncomplicated (principal)
CPT/HCPCS: 96372; J2357

== ENCOUNTER 2021-12-19 09:29 | Outpatient (CLI) | payer MEDICARE, OTHER, SELFPAY ==
[2021-12-19 09:46] VITALS: BP 144/86; PULSE 76; RESP 18; O2SAT 97
== END 2021-12-19 09:46 | disposition home or self-care (01) ==
LOC: INF 09:30
PROVIDERS: PCP Family Medicine; Visit Provider Student in an Organized Health Care Education/Training Program
DX: J45.50 Severe persistent asthma, uncomplicated (principal)
CPT/HCPCS: 96372; J2357

== ENCOUNTER 2022-01-02 09:04 | Outpatient (CLI) | payer MEDICARE, OTHER, SELFPAY ==
[2022-01-02 09:40] VITALS: BP 121/65; PULSE 74; RESP 18; TEMP 36.5; O2SAT 98
== END 2022-01-02 10:00 | disposition home or self-care (01) ==
LOC: INF 09:05
PROVIDERS: PCP Family Medicine; Visit Provider Student in an Organized Health Care Education/Training Program
DX: J45.50 Severe persistent asthma, uncomplicated (principal)
CPT/HCPCS: 96372; J2357

== ENCOUNTER 2022-01-16 08:15 | Outpatient (CLI) | payer MEDICARE, OTHER, SELFPAY ==
[2022-01-16 08:48] VITALS: BP 135/74; PULSE 82; RESP 18; TEMP 36.5; O2SAT 98
== END 2022-01-16 09:00 | disposition home or self-care (01) ==
LOC: INF 08:16
PROVIDERS: PCP Family Medicine; Visit Provider Internal Medicine
DX: J45.50 Severe persistent asthma, uncomplicated (principal)
CPT/HCPCS: 96372; J2357

== ENCOUNTER 2022-01-30 09:07 | Outpatient (CLI) | payer MEDICARE, OTHER, SELFPAY ==
[2022-01-30 09:21] VITALS: BP 145/76; PULSE 74; RESP 16; TEMP 36.4; O2SAT 97
== END 2022-01-30 09:40 | disposition home or self-care (01) ==
LOC: INF 09:08
PROVIDERS: Visit Provider Student in an Organized Health Care Education/Training Program
DX: J45.50 Severe persistent asthma, uncomplicated (principal)
CPT/HCPCS: 96372; J2357

== ENCOUNTER 2022-02-13 09:19 | Outpatient (CLI) | payer MEDICARE, OTHER, SELFPAY ==
[2022-02-13 09:30] VITALS: BP 157/84; PULSE 82; RESP 18; O2SAT 99
[2022-02-13 09:35] VITALS: BP 154/84; PULSE 79; RESP 18; O2SAT 99
== END 2022-02-13 09:35 | disposition home or self-care (01) ==
LOC: INF 09:20
PROVIDERS: PCP Family Medicine; Visit Provider Student in an Organized Health Care Education/Training Program
DX: J45.50 Severe persistent asthma, uncomplicated (principal)
CPT/HCPCS: 96372; J2357

== ENCOUNTER 2022-02-27 09:19 | Outpatient (CLI) | payer MEDICARE, OTHER, SELFPAY ==
[2022-02-27 09:35] VITALS: BP 140/75; PULSE 80; RESP 18; TEMP 36.2; O2SAT 97
== END 2022-02-27 09:50 | disposition home or self-care (01) ==
LOC: INF 09:20
PROVIDERS: PCP Family Medicine; Visit Provider Student in an Organized Health Care Education/Training Program
DX: J45.50 Severe persistent asthma, uncomplicated (principal)
CPT/HCPCS: 96372; J2357

== ENCOUNTER 2022-03-13 08:47 | Outpatient (CLI) | payer MEDICARE, OTHER, SELFPAY ==
[2022-03-13 09:03] VITALS: BP 130/81; PULSE 89; RESP 18; TEMP 36.3; O2SAT 97
== END 2022-03-13 09:22 | disposition home or self-care (01) ==
LOC: INF 08:48
PROVIDERS: PCP Family Medicine; Visit Provider Student in an Organized Health Care Education/Training Program
DX: J45.50 Severe persistent asthma, uncomplicated (principal)
CPT/HCPCS: 96372; J2357

== ENCOUNTER 2022-04-02 09:23 | Outpatient (CLI) | payer MEDICARE, OTHER, SELFPAY ==
[2022-04-02 09:23] VITALS: BP 136/74; PULSE 72; RESP 18; O2SAT 98
[2022-04-02 09:50] VITALS: BP 136/72
== END 2022-04-02 09:50 | disposition home or self-care (01) ==
LOC: INF 09:25
PROVIDERS: PCP Family Medicine
DX: J45.50 Severe persistent asthma, uncomplicated (principal)
CPT/HCPCS: 96372; J2357

== ENCOUNTER 2022-04-16 09:41 | Outpatient (CLI) | payer MEDICARE, OTHER, SELFPAY ==
[2022-04-16 09:52] VITALS: BP 139/72; PULSE 83; RESP 18; TEMP 36.3; O2SAT 97
== END 2022-04-16 10:19 | disposition home or self-care (01) ==
LOC: INF 09:42
PROVIDERS: Visit Provider Student in an Organized Health Care Education/Training Program
DX: J45.50 Severe persistent asthma, uncomplicated (principal)
CPT/HCPCS: 96372; J2357

== ENCOUNTER 2022-05-01 09:00 | Outpatient (CLI) | payer MEDICARE, OTHER, SELFPAY ==
[2022-05-01 09:34] VITALS: BP 146/78; PULSE 84; RESP 18; TEMP 36.6; O2SAT 98
== END 2022-05-01 09:48 | disposition home or self-care (01) ==
LOC: INF 09:02
PROVIDERS: PCP Family Medicine; Visit Provider Student in an Organized Health Care Education/Training Program
DX: J45.50 Severe persistent asthma, uncomplicated (principal)
CPT/HCPCS: 96372; J2357

== ENCOUNTER 2022-05-15 09:35 | Outpatient (CLI) | payer MEDICARE, OTHER, SELFPAY ==
[2022-05-15 10:05] VITALS: BP 136/64; PULSE 72; RESP 18; TEMP 36.6; O2SAT 100
== END 2022-05-15 10:05 | disposition home or self-care (01) ==
LOC: INF 09:39
PROVIDERS: PCP Family Medicine; Visit Provider Student in an Organized Health Care Education/Training Program
DX: J45.50 Severe persistent asthma, uncomplicated (principal)
CPT/HCPCS: 96372; J2357

== ENCOUNTER 2022-05-29 08:53 | Outpatient (CLI) | payer MEDICARE, OTHER, SELFPAY ==
[2022-05-29 09:13] VITALS: BP 135/70; PULSE 79; RESP 16; TEMP 36.6; O2SAT 98
== END 2022-05-29 09:20 | disposition home or self-care (01) ==
LOC: INF 08:56
PROVIDERS: PCP Family Medicine; Visit Provider Student in an Organized Health Care Education/Training Program
DX: J45.50 Severe persistent asthma, uncomplicated (principal)
CPT/HCPCS: 96372; J2357